=== PATIENT | male | born 1960 | race Caucasian/White ===

== ENCOUNTER 2018-03-12 06:03 | Day surgery (SDC) | payer OTHER ==
[2018-03-10 11:25] VITALS: BMI 27.9
[2018-03-12] MEDS ORDERED: DEXAMETHASONE SOD PHOSPHATE/PF 10 MG/ML SDV ONE (07:25)
[2018-03-12] MEDS ORDERED: ROPIVACAINE HCL 0.5% 30ML VIAL ONE (07:25)
[2018-03-12] MEDS ORDERED: MIDAZOLAM HCL 2 MG/2 ML SINGLE DOSE VIAL ONE ×2 (07:26)
--- NOTE | 2018-03-12 08:08 | HP ---
Satellite H - Chief Complaint Chief Complaint: left shoulder pain - Past Medical History Allergies/Adverse Reactions: Allergies Allergy/AdvReac Type Severity Reaction Status Date / Time No Known Allergies Allergy Verified 03/12/18 06:25 - Current Medications Current Medications: Home Medications Medication Instructions Recorded Levothyroxine Sodium [Levoxyl] 137 mcg PO DAILY 03/10/18 Methadone HCl 60 mg PO DAILY 03/10/18 Ramipril [Altace] 5 mg PO DAILY 03/10/18 Multivitamin [One-Daily 1 each PO DAILY 03/12/18 Multi-Vitamin] Oxycodone HCl/Acetaminophen 1 - 2 tab PO Q6H #30 tab MDD 6 03/12/18 [Percocet 5-325 mg Tablet] Satellite Physical Exam - Physical Examination Vital Signs: Vital Signs Period Temp Pulse Resp BP Sys/Joseph Pulse Ox Last 24 Hr 97.9 F 62 20 133/88 98 General Appearance: Well Nourished, Well Developed, Alert & Oriented x3 ENT: Clear Lung: Normal air movement Heart: Regular rate & rhythm Extremities: Other (left shoulder- + ttp, decr rom, + neer, + bonilla, nvi MRI + impingement, rct) Neurological: Intact, Alert, Oriented Satellite Impression/Plan - Impression/Plan Impression: left shoulder impingement, rct Operative Procedure: left shoulder arthroscopy with SAD and possible RCR Date to be Performed: 03/12/18
[2018-03-12] MEDS ORDERED: PROPOFOL 20 ML ONE (08:21)
[2018-03-12] MEDS ORDERED: LIDOCAINE HCL/PF 2% SDV 5ML VIAL ONE (08:21)
[2018-03-12] MEDS ORDERED: DEXAMETHASONE SOD PHOSPHATE 4 MG/1 ML VIAL ONE (08:21)
[2018-03-12] MEDS ORDERED: ROCURONIUM BROMIDE 50 MG/5 ML VIAL ONE (08:22)
[2018-03-12] MEDS ORDERED: ceFAZolin SODIUM 1 GM VIAL ONE (08:26)
[2018-03-12] MEDS ORDERED: ceFAZolin SODIUM 1 GM VIAL IVPB ONE (08:27)
[2018-03-12] MEDS ORDERED: ePHEDrine SULFATE 50 MG/1 ML AMPULE ONE (08:50)
[2018-03-12] MEDS ORDERED: PHENYLEPHRINE HCL 10 MG/1 ML SINGLE DOSE VIAL ONE (09:42)
[2018-03-12] MEDS ORDERED: GLYCOPYRROLATE 0.2 MG/1 ML VIAL ONE (09:44)
--- NOTE | 2018-03-12 09:56 | OP ---
Operative Note - Note: Operative Date: 03/12/18 Pre-Operative Diagnosis: left shoulder impingement, ACJ OA Operation: left shoulder arthroscopy, labral repair, subacromial decompression, distal clavicle excision Findings: also a labral tear Implants: Arthrex x 1 Push Lock anchor, 1 x Fiber stick Surgeon: Bry Wagner [employer] Contract Representative: Crispin Spaulding Anesthesiologist/FAST FOOD ATTENDANT: Darrell Cifuentes Anesthesia: General Specimens Removed: shavings Estimated Blood Loss (mls): 25 Drains, Volume Out (mls): 0 Blood Volume Replaced (mls): 0 Fluid Volume Replaced (mls): 1,000 Operative Report Dictated: Yes
[2018-03-12 11:47] VITALS: TEMP 98
--- NOTE | 2018-03-12 11:51 | OP ---
DATE OF OPERATION: 03/12/2018 PREOPERATIVE DIAGNOSIS: Left shoulder pain, impingement syndrome, and acromioclavicular joint arthritis. POSTOPERATIVE DIAGNOSIS: Left shoulder pain, impingement syndrome, and acromioclavicular joint arthritis, plus anterior labral tear/SLAP (superior labrum anterior and posterior) tear. SURGEON: Gabrielle Gibson MD ASSISTED LIVING ASSOCIATE: ANNA MARIE Crump ANESTHESIOLOGIST: Darrell Cifuentes MD ANESTHESIA: Left interscalene block, general and LMA anesthesia. PROCEDURE: Left shoulder arthroscopy, subacromial decompression, distal clavicle excision, and arthroscopic labral repair. SPECIMENS: Arthroscopic shavings. IMPLANTS: Arthrex PushLock anchor x1 and FiberStick x1. DRAINS: None. COMPLICATIONS: None. BLOOD LOSS: Minimal/25 mL. BLOOD GIVEN: None. FLUID REPLACEMENT: 1000 mL. DESCRIPTION OF PROCEDURE: This patient is a 57-year-old male with a preoperative diagnosis of left shoulder pain, impingement syndrome, and AC joint arthritis. After understanding the potential risks, complications, alternatives and benefits of surgery versus nonsurgical treatment, the patient elected to undergo this procedure. The patient was brought to the operating room, peripheral IV placed, and IV sedation given. Then, 2 g of IV Ancef were given. Left interscalene block was performed. LMA anesthesia was induced. He was placed into the beach-chair position with ample padding throughout. The left upper extremity was prepped and draped in sterile fashion. The bony landmarks were marked out with a marking pen. The posterior portal was established. A diagnostic glenohumeral arthroscopy was performed. Patient had intraarticular synovitis. Therefore, an anterior portal was established, and under direct visualization with the spinal needle and a No. 15 scalpel blade through the skin, then, the Green cannula was introduced into the glenohumeral joint. An arthroscopic synovectomy was performed. This revealed a partially torn and frayed biceps tendon. A shaver was introduced into the joint, and the biceps tendon was debrided. The patient had a frayed labrum, which was debrided. This exposed an anterior labral tear/SLAP lesion. This was from approximately the 9 o'clock to 12 o'clock position. I probed the area. There seemed to be a large very repairable piece of labrum of good substance. Therefore, a typical arthroscopic labral repair was performed using 1 PushLock Arthrex anchor with 1 FiberStick. It came down quite nicely. Photographs were taken before and after. I also debrided the biceps tendon. Photographs were taken afterwards of this, as well. Next, our attention was turned to subacromial space. The patient had a tremendous amount of inflammatory bursitis. The lateral portal was established under direct visualization, and a soft tissue bursectomy was performed. After the extensive debridement with the ArthroCare Wand of the inflammatory bursitis, this revealed a very large subacromial and large subclavicular bony spur. The top surface of the rotator cuff was directly visualized and seemed to look good in all planes. Patient would not need rotator cuff repair. Using a combination of the 5.5-mm oval oswaldo and then fine-tuning it in reverse and using the shaver, I was able to do a bony decompression of the big spur on the undersurface of the acromion and the clavicle. Overall, it came out quite nicely. Photographs were taken before and after. The rotator cuff was directly visualized through a full range of motion. There were no points of impingement. The area was copiously irrigated and washed out. All instrumentation was removed. Total operative time was 50 minutes. GABRIELLE GIBSON M.D. [id number]
[2018-03-12] MEDS ORDERED: ONDANSETRON 4 MG/2 ML VIAL IVPUSH PRN (13:02)
[2018-03-12] MEDS ORDERED: oxyCODONE HCL 5 MG TABLET PO PRN (13:02)
[2018-03-12 13:11] VITALS: BP 129/89; PULSE 86
[2018-03-12] MEDS ORDERED: LACTATED RINGERS SOLUTION 1,000 ML IV SCH (13:15)
--- NOTE | 2018-03-13 18:36 | PATH ---
Surgical Pathology Report Patient Name: CHELSY MERCER Med. Rec. #: [id number] /Age/Gender: 1960 (Age: 57) / M Account: [id number] Location: [facility] Taken: 03/12/2018 Received: 03/12/2018 Reported: 03/13/2018 Physicians: Bry Wagner M.D. Specimen(s) Received SHAVINGS LEFT SHOULDER Clinical History Tear left shoulder Final Diagnosis LEFT SHOULDER, SHAVINGS: FRAGMENT OF FIBROSYNOVIAL TISSUE WITH DEGENERATIVE CHANGE. SEPARATE UNREMARKABLE SKELETAL MUSCLE FRAGMENTS. Electronically Signed Peg Baldwin M.D. Gross Description Received in formalin, labeled "left shoulder shavings," is a 5.3 x 4.0 x 0.5 cm. aggregate of soria-yellow soft tissue fragments. A airport representative portion is submitted in one cassette. /03/12/201803/12/2018
== END 2018-03-12 13:00 | disposition home or self-care (01) ==
LOC: JASU-SURG 06:03
PROVIDERS: ATTEND Orthopaedic Surgery
PROC: 0RBK4ZZ Excision of Left Shoulder Joint, Percutaneous Endoscopic Approach (ICD-10-PCS; 2018-03-12)
PROC: 0PBB4ZZ Excision of Left Clavicle, Percutaneous Endoscopic Approach (ICD-10-PCS; 2018-03-12)
PROC: 0MM24ZZ Reattachment of Left Shoulder Bursa and Ligament, Percutaneous Endoscopic Approach (ICD-10-PCS; principal; 2018-03-12 08:00)
DX: S43.432A Superior glenoid labrum lesion of left shoulder, initial encounter (principal); M75.42 Impingement syndrome of left shoulder; M19.012 Primary osteoarthritis, left shoulder; M71.9 Bursopathy, unspecified; X58.XXXA Exposure to other specified factors, initial encounter; Y93.9 Activity, unspecified; Y92.9 Unspecified place or not applicable; Y99.9 Unspecified external cause status
CPT/HCPCS: 88304-TC; 94760